=== PATIENT | male | born 1950 ===

== ENCOUNTER 2021-01-07 17:27 | Observation (INO) | payer MEDICARE, SELFPAY ==
[2021-01-07] VITALS (7 sets, daily range): BP systolic 113–138; BP diastolic 75–97; PULSE 69–145; RESP 18–20; TEMP 36.5–36.9; O2SAT 98–100; BMI 25.0
--- NOTE | 2021-01-07 17:25 | PC.NURSE ---
This patient, Rolando Escalera, was admitted to IMU Room 204-01. Patient/family oriented to hospital policies and general routines including ID bracelet, bed and alarms, visiting hours, pain management, procedures, bathroom and other care routines, personal items, smoking policy, room service/diet, and visiting hours. Information on how to activate the Rapid Response Team has been discussed. Patient/Family are encouraged to report perceived risks to care and to ask questions if they do not understand what they are told or what they should do.
--- NOTE | 2021-01-07 20:00 | PM.IMHP ---
H&P: HPI History of Present Illness Date/Time: 01/07/21 20:00 Chief Complaint: Atrial fibrillation with rapid ventricular response. Narrative: This is a 71-year-old male with chronic back pain and enlarged prostate who is being directly admitted to the IMU from the emergency department at a [facility] for further treatment evaluation of new onset atrial fibrillation with rapid ventricular response. The patient actually presented with complaints of right flank pain that had been ongoing for approximately 5 days in addition to urinary frequency and feelings of incomplete bladder evacuation. A urinalysis done at a local clinic reportedly showed microscopic hematuria and he was sent to the emergency department to rule out kidney stones. Urinalysis at the hospital did not show any evidence of blood in the urine and his CT was unremarkable. Incidentally he was found to be quite tachycardic and EKG demonstrated atrial fibrillation with rapid ventricular response. He notes that on occasion he has felt his pulse beating irregularly but it is very rare and he has no sensations of racing heart at this time despite his rate being in the 150s. Nearly all of his brothers have atrial fibrillation though the patient himself has no known history of cardiac dysrhythmia or disease. He is quite healthy and has no history of hypertension. He does drink 2 to 3 beers or mixed drinks a night and has 2 cups of coffee in the morning. He has not had exertional chest pain or shortness of breath and in fact he is quite active and enjoys biking, hiking, and running. No syncope or near syncope. No pleuritic pain, orthopnea, PND, or significant lower extremity edema. No concerns for obstructive sleep apnea. Review of Systems Review of Systems: Narrative: 12 systems were reviewed with pertinent positives and negatives as per HPI. Weight has remained stable. He has not injured himself although it sounds like he is very active and lifts weights in addition to the above-mentioned activities. He does not think he has pulled a muscle. He has a known enlarged prostate typically gets up 1 to 2 times a night to use the restroom. His stream has become slower over the years however he has not had issues emptying his bladder her nor has he had issues with frequency like he has been having the last 5 days. No pleuritic pain or shortness of breath. He has occasional lower extremity edema. No calf pain or tenderness. No dysphagia or concerns for aspiration. He has no history of pulmonary disease. Except as documented, all other systems were reviewed and are negative. [facility] Past Medical History Medical History (Updated 01/07/21 @ 23:29 by Leti Sousa PA-C) Chronic pain syndrome Enlarged prostate Spinal stenosis Surgical History Surgical History (Updated 01/07/21 @ 23:22 by Leti Sousa PA-C) History of cervical spinal surgery History of hemorrhoidectomy History of right hip replacement History of tonsillectomy Family History Family History (Updated 01/07/21 @ 23:23 by Leti Sousa PA-C) Sibling Atrial fibrillation Father Hx of CABG Cerebrovascular accident Mother Alzheimer's dementia Social History Social History (Updated 01/07/21 @ 23:24 by Leti Sousa PA-C) Social History: The patient lives in [place], [place] but he has been traveling in his RV and has been in the area for a bit. He is retired. No children. Former smoker. Occasional marijuana use. He drinks 2 to 3 alcoholic beverages a night. He designates his brother, Yaakov, as his surrogate decision maker. He wishes to be a do not resuscitate. Smoking packs per day: 0.5 Smoking cigarettes per day: 10.0 Years smoked: 23 Smoking pack-years: 11.50 Smoking status: Former smoker Tobacco type: cigarettes Second hand tobacco smoke exposure: No Alcohol intake: current Drinks per week: 21 Substance use: current Substance use type: marijuana Last use: over 1
[2021-01-07] MEDS: BACLOFEN 10 MG TABLET 20 MG PO (20:32)
[2021-01-07] MEDS: ACETAMINOPHEN 325 MG TABLET 650 MG PO (23:01)
[2021-01-08] VITALS (8 sets, daily range): BP systolic 109–123; BP diastolic 56–75; PULSE 58–102; RESP 14–20; TEMP 35.9–36.1; O2SAT 98–100
[2021-01-08 05:09] LABS: Alanine Aminotransferase 17 U/L (4-50); Albumin Level 3.9 g/dL (3.5-5.1); Alkaline Phosphatase 55 U/L (38-126); Anion Gap 5 mmol/L (8-16); Aspartate Amino Transferase 28 U/L (17-59); Bilirubin,Total 0.8 mg/dL (0.2-1.3); Blood Urea Nitrogen 17 mg/dL (9-20); Calcium 8.8 mg/dL (8.4-10.2); Carbon Dioxide 27 mmol/L (22-30); Chloride 105 mmol/L (98-107); Cholesterol 205 mg/dL (0-200); Estimated CRCL calculation 65 ml/min; Estimated Glomerular Filt Rate > 60; Glucose 91 mg/dL (75-110); HDL Direct 54 mg/dL; Magnesium 2.1 mg/dL (1.6-2.3); Potassium 3.6 mmol/L (3.4-5.0); Sodium 137 mmol/L (137-145); Triglycerides 151 mg/dL (<150)
[2021-01-08 05:10] LABS: Hematocrit 39.2 % (42.0-52.0); Hemoglobin 13.1 g/dL (14.0-18.0); Mean Corpuscular HGB Conc 33.4 g/dl (32-36); Mean Corpuscular Hemoglobin 32.5 pg (26-34); Mean Corpuscular Volume 97.3 fl (80-100); Mean Platelet Volume 9.4 fl (7.4-10.4); Platelet Count Result 188 k/mm3 (150-375); Red Blood Count 4.03 M/mm3 (4.6-6.20); Red Cell Distribution Width 12.9 % (11.5-14.5); White Blood Count 6.6 K/mm3 (4.5-10.0)
[2021-01-08 05:20] LABS: LDL Cholesterol Direct 112 mg/dL
[2021-01-08 06:19] LABS: Thyroid Stimulating Hormone Reflex 0.725 uIU/mL (0.465-4.68)
[2021-01-08] MEDS: FOLIC ACID 1 MG TABLET PO (07:51)
[2021-01-08] MEDS: THERAPEUTIC MULTIVITAMINS/MINERALS TAB (*BKC) 1 TABLET PO (07:51)
[2021-01-08] MEDS: THIAMINE HCL 100 MG TABLET PO (07:51)
[2021-01-08] MEDS: BACLOFEN 10 MG TABLET 20 MG PO (07:51)
--- NOTE | 2021-01-08 09:40 | PM.CNCAR ---
Assessment and Plan Assessment and plan (1) Atrial fibrillation with rapid ventricular response: Code(s): I48.91 - Unspecified atrial fibrillation Status: Acute Assessment and Plan: 71-year-old male with Self-reported history of rheumatic fever in childhood; history of BPH, spinal stenosis. patient presented with flank pain, found to be in atrial fibrillation with RVR. He was given IV diltiazem, and had spontaneous adventist of sinus rhythm. Echocardiogram on my personal evaluation showed normal LV systolic function, no significant valvular abnormality, mild pulmonary hypertension. TSH is within normal limits. Spoke with patient about his clinical condition and need for follow-up. Patient remains at risk for recurrent atrial fibrillation. His current CHADSVASc score is 1 with yearly risk of stroke 1.3%. Patient prefers to be on antiplatelet treatment over anticoagulation. Aspirin regimen will be initiated. Patient was advised that his stroke risk may slip box changer time with any additional risk factors, and he may need to be on anticoagulation in future. Patient was advised to cut down on alcohol intake. He was advised to establish a digital imaging technician in his hometown for follow-up. (2) Right flank pain: Code(s): R10.9 - Unspecified abdominal pain Status: Acute Assessment and Plan: Evaluation and management as per primary team. History of Present Illness History of Present Illness Consult date/time: 01/08/21 09:40 DATE OF CONSULT: 01/08/2021 REASON FOR CONSULT: AFib RVR REQUESTING PHYSICIAN:ALANNA Sousa CHIEF COMPLAINT: right flank pain HPI: 71-year-old male with Self-reported history of rheumatic fever in childhood; history of BPH, spinal stenosis. Patient presented to outside facility with 5 day history of right flank pain. Patient is originally from [place], and is currently in this area on a camping trip. He has been experiencing right flank pain for about 5 days. He went to a local hospital, and was found to be in atrial fibrillation with RVR. EKG on my personal evaluation showed AFib with RVR, ventricular rate 155 beats per minute, PVCs versus aberrantly conducted beats . He was initiated on IV diltiazem, and was also given dose of low molecular weight heparin. He was later transferred to [facility] . Patient converted to sinus rhythm during hospitalization, and at the time of evaluation, he was in sinus rhythm with heart rates in 60s. He is currently undergoing workup for flank pain by primary team. Patient's echocardiogram which I personally evaluated showed normal LV systolic function, no significant valvular abnormality , mild pulmonary hypertension. He gives history of occasional palpitations and states that he feels irregular heartbeat when he palpates his carotid arteries occasionally. He gives history of what he described as rheumatic fever in childhood. He states that he had unremarkable cardiac workup over the years. No official details are available. Reason For Visit: New onset Afib Review of Systems Review of Systems: Narrative: General: Negative for fever, chills, fatigue Psychological: Negative for anxiety, depression Ophthalmic: negative for loss of vision ENT: Negative for epistaxis, headaches Allergy and immunology: Negative for hives, nasal congestion Hematologic and lymphatic: Negative for overt bleeding problems Endocrine: Negative for hot flashes, palpitations Respiratory: Negative for cough, hemoptysis Cardiovascular: Negative for chest pain, shortness of breath, Positive for occasional palpitation Gastrointestinal: positive for right flank pain Musculoskeletal: Negative for myalgia, joint pains Neurological: Negative for weakness Dermatological: Negative for rash, skin discoloration PMFSH Past Medical History Medical History Chronic pain syndrome Enlarged prostate Spinal paige
--- NOTE | 2021-01-08 11:39 | PM.DS ---
DS: Admitting Diagnosis Admitting Diagnosis Admitting Diagnosis: A fib RVR DS: Discharge Diagnosis Discharge Diagnosis (1) Atrial fibrillation with rapid ventricular response: Code(s): I48.91 - Unspecified atrial fibrillation Status: Acute Assessment and Plan: Date of Admission 01/07/21 Date of Discharge 01/08/21 Mr. Escalera is a 71yoM who presented to an outside hospital in [place] for evaluation of right flank pain, incidentally was found to be in atrial fibrillation with RVR and was transferred directly to our facility for cardiology evaluation. See History & Physical for full details. CT abd/pel at outside hospital showed no evidence to account for patient R flank pain. Patient was started on IV diltiazem and around the 3 oclock hour the following morning, converted into normal sinus rhythm with rates in 70s. He was evaluated by cardiology, Dr Smith, early AM. Echocardiogram detailed below. He was hemodynamically stable for discharge 01/08/21 with oral diltiazem and full-dose aspirin by cardiology, with recommendations to follow up with PCP and establish care with a ux specialist once he returned home to [place]. He had been traveling in his RV and had been in [place] for about 10 days prior to arrival here. He is very eager for discharge. (2) Chronic pain syndrome: Code(s): G89.4 - Chronic pain syndrome Status: Chronic (3) Enlarged prostate: Code(s): N40.0 - Benign prostatic hyperplasia without lower urinary tract symptoms Status: Acute (4) Right flank pain: Code(s): R10.9 - Unspecified abdominal pain Status: Acute DS: Summary Hospital Course Hospital Course: See above Time Spent with Patient Time attestation: Total time spent providing and/or coordinating discharge services: 35 minutes Exam Narrative: Exam Narrative: General: Well-developed male sitting up in bed in no distress, HEENT: Wearing glasses. EOMI, oral mucosa moist. Neck: Supple. No JVD . Respiratory: Lungs are clear to auscultation bilaterally. Respirations even and nonlabored tolerating room air. Cardiovascular: Rate and rhythm regular. Telemetry shows normal sinus rhythm HR 76bpm. Gastrointestinal: Abdomen is soft, nontender, and nondistended with positive bowel sounds. mild tenderness to palpation over the right flank /subscapular region. No CVA tenderness. Skin: Warm and dry. No rash or lesions on limited exam. Extremities: No cyanosis, clubbing, or significant edema. Radial and pedal pulses intact. Neurological: Awake and alert; answering questions appropriately. Cranial nerves 2-12 are grossly intact. No gross focal deficits to casual conversation. Speech is clear. DS: Data Data Completed and Pending Labs on day of discharge: Last Vital Signs Temp 96.6 F L 01/08/21 12:00 Pulse 77 01/08/21 12:00 Resp 14 01/08/21 12:00 BP 123/69 01/08/21 12:00 Pulse Ox 99 01/08/21 12:00 Laboratory Tests 01/08/21 04:15 01/08/21 04:15 2-D Echocardiogram 01/08/21: Summary 1. Complete two-dimensional, color flow and Doppler transthoracic echocardiogram is performed. 2. Normal LV size and wall thickness; normal LV systolic and diastolic function, ejection fraction 60-65%. Mild left atrial enlargement. Normal mitral valve structure, trace MR. No mitral stenosis. Mild aortic valve sclerosis, no stenosis. Mild tricuspid regurgitation, mild pulmonary hypertension, RVSP 38 mmHg. Sinus rhythm. Discharge Plan Discharge Attending physician on discharge: Carlos Kenney Consulting providers: Cali Smith Discharging Clinician: Fadia Rodriguez Anticipated Discharge Date/Time: 01/08/21 11:39 Patient Disposition: Home, Self-Care Activity: as tolerated Diet: as tolerated Discharge Instructions: Please call to schedule a hospital follow up appointment with your primary care provider upon your return back home. You will also benefit from establishing c
--- NOTE | 2021-01-08 23:49 | ECHO_ITS ---
Patient Info Name: Rolando Escalera Age: 71 years : 1950 Gender: Male Ht: 72 in Wt: 184 lbs BSA: 2.07 m2 HR: 69 bpm BP: 109 / 56 mmHg Technical Quality: Good Exam Date: 01/08/2021 8:01 AM Exam Location: [facility] Patient Status: Outpatient Admit Date: 01/07/2021 Staff Ordering Physician: Leti Sousa PA-C Garage Helper: Karri Khoury RDCS, RT Attending Provider: Fadia Rodriguez PA-C Referring Physician: Lars MULLINS; Exam Type: CA echo doppler color flow Study Info Indications I48.0 - Paroxysmal atrial fibrillation Complete two-dimensional, color flow and Doppler transthoracic echocardiogram is performed. Strain analysis performed. Summary 1. Complete two-dimensional, color flow and Doppler transthoracic echocardiogram is performed. 2. Normal LV size and wall thickness; normal LV systolic and diastolic function, ejection fraction 60-65%. Mild left atrial enlargement. Normal mitral valve structure, trace MR. No mitral stenosis. Mild aortic valve sclerosis, no stenosis. Mild tricuspid regurgitation, mild pulmonary hypertension, RVSP 38 mmHg. Sinus rhythm. Left Ventricle Left ventricular chamber dimension is normal. Left ventricular systolic function is normal, estimated at 60-65%. There is no increased left ventricular wall thickness. The left ventricular diastolic function is normal. Right Ventricle Right ventricular chamber dimension is normal. Right ventricular systolic function is normal. Left Atria Left atrial chamber dimension is mildly enlarged. Right Atria Right atrial chamber dimension is normal. Aortic Valve There is mild aortic valve sclerosis. There is no aortic valve stenosis. Pulmonic Valve The pulmonic valve is normal. Mitral Valve The mitral valve has normal leaflets. There is no mitral valve stenosis. There is trace mitral valve regurgitation. Tricuspid Valve The tricuspid valve leaflets are normal. There is mild tricuspid valve regurgitation. Pericardium/Pleural The pericardium appears normal. Aorta The aortic root size at the sinus of Valsalva is normal. Left Ventricular Outflow Tract Name Value Normal LVOT 2D LVOT Diameter 2.0 cm LVOT Doppler LVOT Peak Gradient 6 mmHg LVOT Mean Gradient 3 mmHg LVOT VTI 27 cm LVOT VTI/AV VTI Ratio 0.8 LVOT Stroke Volume 88 ml LVOT CO 6.3 l/min LVOT CI 3.0 l/min/m2 Mitral Valve Name Value Normal MV Doppler MV Decel [place] 528 cm/s2 MV PHT 57 ms MV Area (PHT) 3.9 cm2 4.0-5.0 MV Diastolic Function
== END 2021-01-08 13:11 | disposition home or self-care (01) ==
PROVIDERS: Physician Assistant; Admitting Provider Internal Medicine; Visit Provider Physician Assistant
DX: I48.91 Unspecified atrial fibrillation (principal); R10.9 Unspecified abdominal pain; R93.89 Abnormal findings on diagnostic imaging of other specified body structures; G89.4 Chronic pain syndrome; M54.9 Dorsalgia, unspecified; I36.1 Nonrheumatic tricuspid (valve) insufficiency; I35.8 Other nonrheumatic aortic valve disorders; N40.0 Benign prostatic hyperplasia without lower urinary tract symptoms; M48.00 Spinal stenosis, site unspecified; Z87.891 Personal history of nicotine dependence; F12.90 Cannabis use, unspecified, uncomplicated; Z79.899 Other long term (current) drug therapy
CPT/HCPCS: 36415; 80053; 80061; 83735; 84443; 85027; 93306; 96374; A9270; G0378; G0379